=== PATIENT | male | born 2000 | race American Indian/Alaskan Native ===

== ENCOUNTER 2018-04-20 15:56 | Emergency (ER) | payer MEDICAID, OTHER ==
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
[2018-04-20 16:10] VITALS: BP 149/79
[2018-04-20] MEDS ORDERED: IBUPROFEN PO ONE (17:49)
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
== END 2018-04-20 18:25 | disposition home or self-care (01) ==
LOC: ED 15:56
DX: S16.1XXA Strain of muscle, fascia and tendon at neck level, initial encounter (principal); R07.81 Pleurodynia; M25.511 Pain in right shoulder; M25.512 Pain in left shoulder; M25.561 Pain in right knee; V49.59XA Passenger injured in collision with other motor vehicles in traffic accident, initial encounter; Y93.89 Activity, other specified; Y92.89 Other specified places as the place of occurrence of the external cause; Y99.8 Other external cause status
CPT/HCPCS: 72040